=== PATIENT | female | born 1975 | race Caucasian/White ===

== ENCOUNTER 2018-06-20 10:36 | Outpatient (CLI) | payer BC ==
[~2018-06-20 10:36] MED LIST: HYDR-3965 PO; ONDA4TAB12 PO
[2018-06-20 10:53] VITALS: BP 155/101
== END 2018-06-20 11:39 | disposition home or self-care (01) ==
LOC: ORTHO 10:36
PROVIDERS: ATTEND Nurse Practitioner Family
DX: S92.324A Nondisplaced fracture of second metatarsal bone, right foot, initial encounter for closed fracture (principal); F12.90 Cannabis use, unspecified, uncomplicated; F10.10 Alcohol abuse, uncomplicated; F17.210 Nicotine dependence, cigarettes, uncomplicated; Z90.710 Acquired absence of both cervix and uterus; W10.8XXA Fall (on) (from) other stairs and steps, initial encounter; Y93.89 Activity, other specified; Y92.89 Other specified places as the place of occurrence of the external cause; Y99.8 Other external cause status
CPT/HCPCS: 99213